=== PATIENT | male | born 1975 | race Two or more races ===

== ENCOUNTER 2017-06-18 01:33 | Emergency (ER) | payer OTHER ==
[2017-06-18 02:32] VITALS: BP 127/63; PULSE 90; BMI 27.3
[2017-06-18] MEDS ORDERED: SODIUM CHLORIDE 1,000 ML IV STA (02:42)
[2017-06-18] MEDS ORDERED: ACETAMINOPHEN 1000 MG/100 ML VIAL (NON FORMULARY) IVPB ONE (02:45)
[2017-06-18] MEDS ORDERED: ACETAMINOPHEN INJECTION 100 ML IVPB ONE (02:48)
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
[2017-06-18 03:16] LABS: BASO % 0.6 % (0-2.0); EOS % 0.5 % (0-4.5); MCH 34.3 pg (25.7-33.7); MCHC 34.3 g/dl (32.0-35.9); MEAN CELL VOLUME 99.8 fl (80-96); MEAN PLT VOLUME 9.9 fl (7.5-11.1); NEUT % 57.9 % (42.8-82.8); PLATELET COUNT 178 K/MM3 (134-434); RDW 12.6 % (11.9-15.9); WHITE BLOOD COUNT 4.3 K/mm3 (4.0-10.0)
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
[2017-06-18 03:39] LABS: ALBUMIN 3.6 g/dl (3.4-5.0); ALK PHOS 124 U/L (45-117); ANION GAP 14 (8-16); BILIRUBIN,TOTAL 0.7 mg/dL (0.2-1.0); CALCIUM 8.8 mg/dL (8.5-10.1); CO2 24 mmol/L (21-32); CREATININE 0.9 mg/dL (0.7-1.3); GLUCOSE,RANDOM 95 mg/dL (74-106); SGPT/ALT 277 U/L (12-78); TOT PROT 8.3 g/dl (6.4-8.2)
[2017-06-18 03:48] LABS: SGOT/AST 594 U/L (15-37)
[2017-06-18 04:24] LABS: HIV 1 & 2 AB NEGATIVE; HIV 1 AGp24 NEGATIVE
[2017-06-18 05:03] LABS: URINE APPEARANCE CLEAR; URINE BILIRUBIN NEGATIVE (NEGATIVE); URINE BLOOD NEGATIVE (NEGATIVE); URINE COLOR YELLOW; URINE GLUCOSE (UA) NEGATIVE (NEGATIVE); URINE KETONE NEGATIVE (NEGATIVE); URINE NITRITE NEGATIVE (NEGATIVE); URINE PROTEIN NEGATIVE (NEGATIVE); URINE UROBILINOGEN NEGATIVE mg/dL (0.2-1.0)
[2017-06-18 09:05] LABS: URINE LEUK ESTERASE Negative (NEGATIVE)
== END 2017-06-18 07:10 | disposition left against medical advice (07) ==
LOC: JER 01:33
PROC: 3E033NZ Introduction of Analgesics, Hypnotics, Sedatives into Peripheral Vein, Percutaneous Approach (ICD-10-PCS; principal; 2017-06-18)
PROC: 3E0337Z Introduction of Electrolytic and Water Balance Substance into Peripheral Vein, Percutaneous Approach (ICD-10-PCS; 2017-06-18)
DX: R10.9 Unspecified abdominal pain (principal); F10.10 Alcohol abuse, uncomplicated; F11.10 Opioid abuse, uncomplicated; F17.210 Nicotine dependence, cigarettes, uncomplicated; B19.20 Unspecified viral hepatitis C without hepatic coma
CPT/HCPCS: 36415; 74177-TC; 80053; 80307; 81003; 83615; 83690; 85025; 85027; 86593; 87389; 96361; 96374; 99285-25